=== PATIENT | female | born 1955 | race Caucasian/White ===

== ENCOUNTER → 2020-03-23 13:32 | Outpatient (CLI) | payer OTHER, SELFPAY ==
[2020-03-23 16:31] LABS: Vitamin D,25 Hydroxy 22.1 ng/mL
== END ==
PROVIDERS: Visit Provider Student in an Organized Health Care Education/Training Program
DX: E55.9 Vitamin D deficiency, unspecified (principal)
CPT/HCPCS: 36415; 82306

== ENCOUNTER → 2020-06-25 08:13 | Outpatient (CLI) | payer OTHER, SELFPAY ==
[2020-06-15 09:05] VITALS: BMI 42.9
--- NOTE | 2020-06-25 08:17 | US_ITS ---
STUDY: ULTRASOUND BREAST - LEFT REASON FOR EXAM: Female, 64 years old. Ultrasound guided left breast biopsy. TECHNIQUE: Axial and longitudinal images of the LEFT breast were performed with a high resolution ultrasound transducer. # OF IMAGES: 33 COMPARISON: None. FINDINGS: LEFT Breast: Under direct sonographic guidance, a decision performed 2 core biopsies of the 7 mm x 5 mm x 5 mm hypoechoic nodule at the 10 o''clock position of the breast at 5 cm from nipple. US/US Breast Biopsy 1st Lesion IMPRESSION: Ultrasound guided biopsy of the hypoechoic solid nodule at the 10 o''clock position of the breast at 5 cm from the nipple. ASSESSMENT CATEGORY: BIRADS Category 2: Benign. A letter regarding these results will be sent to the patient by the facility within 30 days. Electronically Signed: Elías Casanova MD at 10:55 EST , Service support ,
--- NOTE | 2020-06-25 08:45 | BRBX_PTH ---
PATIENT: LENNY DANG LOC: [facility] U#:[id number] AGE/SX: 69/F ROOM: RE06/25/[address]: Dr. Odette Chun MD : 1955 BED: DIS: SPEC #: [id number] RECD: 06/25/20 10:41 STATUS: CRISTEL REReddy #: [id number] NELSON: 06/25/20 08:[address]: Odette Chun DEPT: SURGICAL PATHOLOGY RECD BY: Thomas Stone ENTERED: 06/25/20 11:24 SP TYPE: BREAST BX OTHR DR: Dr. Cristi Hilton MD Tissues: Left breast, NOS Procedures: Surgery Specimen Level IV HEADER OPERATION: Left breast biopsy PRE-OP DIAGNOSIS: Left breast mass TISSUE SUBMITTED: Left breast mass 10 o'clock solid/cystic ISCHEMIC TIME: 1 minute FIXATION TIME: 58.5 hours MICROSCOPIC DIAGNOSIS Left breast mass, core biopsy: Mild duct ectasia and focal features of fibrocystic change. No evidence of malignancy. AM:lopez 06/28/2020 MICROSCOPIC DESCRIPTION Slides are reviewed. GROSS DESCRIPTION Received in fixative is one container labeled with the patient's name and designated left breast. The specimen consists of two elongated fragments of yellow soft tissue that in aggregate measure 1.5 x 0.2 x 0.1 cm. The specimen is totally submitted in one cassette. / AM:lopez 06/25/20 TC:5 CPT: 08329
--- NOTE | 2020-06-25 09:28 | PCM.OPRPT ---
Report of Operation Date of Procedure: 06/25/20 Pre-Operative Diagnosis: Left breast mass 10:00 5 cm from the nipple Post-Operative Diagnosis: Same Surgery/Procedure Performed:: Left breast ultrasound-guided core biopsy Type of Anesthesia:: Local Estimated Blood Loss (mL): Minimal Description of Procedure: Procedure: ultrasound-guided core biopsy Indications: 64 year-old female with hypoechoic nodule at 10:00 in the left breast 5 centimeters from the nipple. Risk benefits were discussed the patient and she elected to proceed with ultrasound guided core biopsy with clip placement Description of procedure: Patient was brought into the ultrasound room in the left breast was marked. A timeout was completed verifying correct patient, procedure, site, specially, prior to beginning procedure. The left breast was prepped and draped in usual sterile fashion and using local anesthesia was obtained with 1% lidocaine with epi. The lesion was located with the ultrasound. Small incision was made with 11 blade to introduced the mammotome through the skin. Under ultrasound guidance multiple core samples were obtained using then 13-gauge mammotome and sent in formalin for pathology. The mammotome mammostar clip was then deployed into the biopsy cavity under ultrasound guidance and a picture was taken. Upon completion procedure hemostasis was obtained and a Steri-Strip and OpSite were placed. Patient was then taken to the mammography suite for clip verification. The clip was verified. The patient tolerated the procedure well and was discharged from the breast imaging department good condition. complications: none - Complications None
== END ==
PROVIDERS: PCP Family Medicine; Referring Provider Surgery; Visit Provider Surgery
DX: N60.42 Mammary duct ectasia of left breast (principal); N60.12 Diffuse cystic mastopathy of left breast
CPT/HCPCS: 19083; 88305

== ENCOUNTER → 2021-01-25 10:48 | Outpatient (CLI) | payer OTHER, SELFPAY ==
[2020-06-15 09:05] VITALS: BMI 42.9
--- NOTE | 2021-01-25 10:51 | US_ITS ---
STUDY: ULTRASOUND BREAST - LEFT REASON FOR EXAM: Female, 65 years old. Follow-up biopsy TECHNIQUE: Axial and longitudinal images of the LEFT breast were performed with a high resolution ultrasound transducer. # OF IMAGES: 22 COMPARISON: 06/25/2020 FINDINGS: LEFT Breast: Heterogeneous background echotexture. There is no change in a 5 mm oval parallel circumscribed hypoechoic mass which has been biopsied.: US/Breast Limited Unilateral IMPRESSION: No change in 5 mm oval hypoechoic mass which has been biopsied. ASSESSMENT CATEGORY: BIRADS Category 2: Benign. A letter regarding these results will be sent to the patient by the facility within 30 days. Electronically Signed: Singh Gutierrez MD at 14:20 EDT Tel , Service support ,
== END ==
PROVIDERS: PCP Family Medicine; Referring Provider Surgery; Visit Provider Surgery
DX: R92.8 Other abnormal and inconclusive findings on diagnostic imaging of breast (principal)
CPT/HCPCS: 76642

== ENCOUNTER 2021-09-05 08:42 | Outpatient (CLI) | payer MEDICARE, SELFPAY ==
--- NOTE | 2021-09-05 08:44 | BI_ITS ---
MAMMOGRAPHY - BILATERAL SCREENING REASON FOR EXAM: Female, 66 years old. Routine annual screening examination. PERTINENT HISTORY: Grandmother with breast cancer. History of prior left ultrasound-guided breast biopsy. TECHNIQUE: Digital bilateral breast mariela (3D mammographic acquisition) in the CC and MLO projections. 2-D mediolateral oblique (MLO) and craniocaudad (CC) views of both breasts were obtained. CAD: Full Field Digital Mammography with Computer Added Detection was performed. COMPARISON: Comparison is made with prior abdomen examination dated 05/18/2020. FINDINGS: Breast Composition: There are scattered areas of fibroglandular density. There are no dominant masses or suspicious calcifications. A tissue clip marker is seen within a tiny nodule in the central medial anterior aspect of the left breast. The nodular density has decreased in size as compared to prior study. No other significant abnormalities are identified. There has been no significant change since the prior study. BI/SCRN MAMM (CAD)W/MARIELA BILAT IMPRESSION: Stable bilateral screening mammogram. Yearly follow-up mammogram recommended. (A) ASSESSMENT CATEGORY: BIRADS Category 2: Benign. A letter regarding these results will be sent to the patient by the facility within 30 days. Approximately 10% of breast cancers are not detected by mammography. A normal mammogram should not delay biopsy of a clinically suspicious abnormality. [id number] Electronically Signed: Elías Casanova MD at 10:04 EDT ,
== END 2021-09-05 23:59 | disposition home or self-care (01) ==
PROVIDERS: PCP Family Medicine; Referring Provider Student in an Organized Health Care Education/Training Program; Visit Provider Student in an Organized Health Care Education/Training Program
DX: Z12.31 Encounter for screening mammogram for malignant neoplasm of breast (principal); Z80.3 Family history of malignant neoplasm of breast
CPT/HCPCS: 77063; 77067

== ENCOUNTER → 2022-09-07 | Outpatient (CLI) | payer MEDICARE, SELFPAY ==
--- NOTE | 2022-09-07 09:18 | BI_ITS ---
MAMMOGRAPHY - BILATERAL SCREENING 3-D TOMOSYNTHESIS REASON FOR EXAM: Female, 67 years old. Routine screening PERTINENT HISTORY: Grandmother with breast cancer.. TECHNIQUE: 2-D mammograms and 3-D Tomosynthesis of the breast (s) were performed. CAD was performed. COMPARISON: 09/05/2021 FINDINGS: The breast composition is composed of scattered fibroglandular density. Scattered benign calcifications are seen. No dense spiculated masses or suspicious microcalcifications are identified. No architectural distortion is identified. There is no skin thickening or retraction. There has been no significant change since the prior study. BI/SCRN MAMM (CAD)W/MARIELA BILAT IMPRESSION: No mammographic signs of malignancy. Routine yearly mammograms recommended. ASSESSMENT CATEGORY: BIRADS Category 1: Negative. A letter regarding these results will be sent to the patient by the facility within 30 days. FOLLOW UP RECOMMENDATION: Yearly follow up mammogram recommended. (A) Approximately 10% of breast cancers are not detected by mammography. A normal mammogram should not delay biopsy of a clinically suspicious abnormality. Electronically Signed: Eulalio Hernandes MD at 11:56 EDT ,
--- NOTE | 2022-09-07 09:25 | BD_ITS ---
STUDY: DUAL ENERGY X-RAY ABSORPTIOMETRY / DXA REASON FOR EXAM: Female, 67 years old. 627.8Menopausal postmenopausal BONE DENSITY REASON FOR EXAM TECHNIQUE: Bone Mineral Density (BMD) measurements of lumbar spine and bilateral hips were obtained. COMPARISON: None. FINDINGS: Lumbar Spine (L1-L4): g/cm2 (1.229) / T-score (1.7) / Z-score (3.5) Findings are suggestive of normal bone density with a low fracture risk. Left Femur Total: g/cm2 (1.179) / T-score (1.9) / Z-score (3.2) Left Femoral Neck: g/cm2 (0.943) / T-score (0.8) / Z-score (2.4) Right Femur Total: g/cm2 (1.145) / T-score (1.7) / Z-score (3.0) Right Femoral Neck: g/cm2 (0.886) / T-score (0.3) / Z-score (1.9) BD/Dexa Bone Density Study IMPRESSION: The patient is considered normal as outlined below according to World [employer] Organization (WHO) criteria with a low fracture risk. Reference Information: The T-score is the number of standard deviations above or below the standard which is normal for young adults at their peak bone mineral density. The World Health Organization (WHO) interprets the T-scores as follows: Above -1 Normal bone density Between -1 and -2.5 Osteopenia Equal to / or below -2.5 Osteoporosis As a practical clinical guideline, osteopenia may be graded as follows: Mild -1 through -1.5 Moderate -1.6 through -2.0 Severe -2.1 through -2.4 The Z-score is the number of standard deviations above or below age-matched controls. A Z-score of less than -1.5 would be considered abnormal. References: 1. NIH Osteoporosis and Related Bone Diseases www osteo.org 2. International Society for Clinical Densitometry www iscd.org 3. National Osteoporosis Foundation www nof.org Electronically Signed: Elías Casanova MD at 15:27 EDT ,
== END | disposition home or self-care (01) ==
PROVIDERS: PCP Nurse Practitioner Family; Referring Provider Student in an Organized Health Care Education/Training Program; Visit Provider Student in an Organized Health Care Education/Training Program
DX: Z13.820 Encounter for screening for osteoporosis (principal); N95.9 Unspecified menopausal and perimenopausal disorder; Z12.31 Encounter for screening mammogram for malignant neoplasm of breast
CPT/HCPCS: 77063; 77067; 77080

== ENCOUNTER 2022-09-25 09:17 | Day surgery (SDC) | payer MEDICARE, SELFPAY ==
[2022-09-25 09:41] VITALS: BP 118/85; PULSE 70; RESP 16; TEMP 36.6; O2SAT 97; BMI 43.6
--- NOTE | 2022-09-25 09:49 | H&P.OPEN ---
HPI - General General Date of Admission: 09/25/22 HPI Narrative LENNY DANG, is a 67 F who presents for screening colonoscopy. Patient never had previous colonoscopy. Patient denies any changes since her last office visit denies any abdominal pain. office visit 08/25/22 HPI HPI: Six 7-year-old female presents for screening colonoscopy.? Patient's never had previous colonoscopy.? However patient states she had diverticulitis 10 to 15 years ago and again had an episode and got Augmentin for 10 days from PCP but did not have a CAT scan at that time.? Patient states that she had bloating with this and left lower quadrant pain and some looser bowel movements but symptoms did improve after a few days.? Patient denies any family history of colon cancer.? Patient states she has bowel movements daily.? Patient is on 81 mg of aspirin and fish oil no other anticoagulation.? Patient denies any chronic abdominal pain/nausea/vomiting/reflux. [facility] Medical History (Updated 09/18/22 @ 14:02 by Miladys Reaves) Abnormal mammogram of left breast Abnormal ultrasound of breast Chest pain Depression Fatigue Gastric reflux High cholesterol History of diverticulitis History of stress test Hives Hypertension Non-smoker Post-menopausal Shortness of breath on exertion Thyroid disease Wears glasses Home Medications amlodipine 5 mg-benazepril 20 mg capsule 1 cap PO QHS 06/15/20 [History Last Taken Unknown] aspirin 81 mg tablet,delayed release (Adult Low Dose Aspirin) 81 mg PO DAILY 06/15/20 [History Last Taken Unknown] carvedilol 12.5 mg tablet 3.125 mg PO BID 06/15/20 [History Last Taken 09/25/22] hydrochlorothiazide 25 mg tablet 12.5 mg PO DAILY 06/15/20 [History Last Taken Unknown] levothyroxine 137 mcg tablet 137 mcg PO DAILY 06/15/20 [History Last Taken 09/25/22] omega-3 fatty acids 1,000 mg capsule (Fish Oil Concentrate) 1,000 mg PO DAILY 06/15/20 [History Last Taken Unknown] rosuvastatin 10 mg tablet 5 mg PO DAILY 06/15/20 [History Last Taken Unknown] vitamin B complex (B Complex-Vitamin B12 tablet) 1 tab PO DAILY 06/15/20 [History Last Taken Unknown] vitamin E (dl, acetate) 180 mg (400 unit) capsule 180 mg PO DAILY 08/15/22 [History Last Taken Unknown] calcium carbonate 333 mg-magnesium oxide 133 mg-zinc gluc 5 mg tablet 1 tab PO DAILY 09/18/22 [History Last Taken Unknown] omeprazole 20 mg tablet,delayed release 20 mg PO DAILY 09/18/22 [History Last Taken Unknown] Allergy/AdvReac Type Severity Reaction Status Date / Time Penicillins Allergy Unknown unknown Verified 09/25/22 09:39 Family History (Updated 08/24/22 @ 13:35 by [place]) Sister Rheumatoid arthritis Leukemia Father , heart attack age 57 Heart disease Myocardial infarction Hypertension CVA (cerebral vascular accident) Mother Arthritis Grandmother Cancer Son Diabetes Sister Seizures Sister Thyroid disorder Surgical History (Updated 09/18/22 @ 14:02 by Miladys Reaves) Hx of cardiac catheterization Hx of hysterectomy Social History Smoking Status: Never smoker second hand exposure: No alcohol intake: never substance use type: does not use caffeine: Yes what type of physical activity do you participate in: none frequency: does not exercise Past Medical/Surgical History Planned Operation Planned Operative Procedure/s: COLONOSCOPY Previous Hospitalizations/Surgeries HX Hospitalizations: No Any Problems With Anesthesia: No You/Your Family Experience Fever (Hyperthermia) With Anes: No Cholinesterase deficiency: No Cardiovascular Hx Hypertension: Yes (CONTROLLED ON MED) Respiratory Hx Sleep Apnea: No Hx Respiratory Tract Infection/Cold (presently): No Do You Snore Loudly (louder than talking or can be heard): No Do You Often Feel Tired/ Fatigued/ Sleepy Dring Daytime?: No Has Anyone Observed You Stop Breathing During Sleep?: No Result (for STOP score): Negative Smoking Status: Never smoker Neurological Does patient have nerve stimulator: No Allergies Penicillins Allergy (Unknown, Verified 09/25/22 09:39) unknown Discharge Is Pt Admitted From a Halfway, or a Longterm: No After D/C, Where Do you Plan to Go: Return Home Physical Exam Const alert, oriented x3 and no apparent distress HEENT normocephalic and head/scalp atraumatic Resp normal respiratory effort Cardio regular rate GI soft to palpation and non-tender; Negative for non-distended Palpation: Negative for guarding Extremity no clubbing, cyanosis or edema Neuro CN's II-XII intact bilaterally Psych mental status grossly normal Assessment & Plan Assessment/Plan (1) Hx of diverticulitis of colon: Surgery Risks - Colonoscopy I discussed with the patient the risks of the procedure: Yes Risks Include but are not Limited To: Risks include but are not limited to: Bleeding, perforation requiring further surgery, inability to complete colonoscopy requiring barium enema.
[2022-09-25] MEDS: Lactated Ringers 1,000 ML 15 ML IV (09:53)
[2022-09-25 10:30] VITALS: BP 118/85; BP 90/56; PULSE 77; RESP 16; TEMP 36.6; O2SAT 94
--- NOTE | 2022-09-25 10:33 | OP.CCLET_ITS ---
09/25/2022 Adis Shafer Re : Colonoscopy procedure for Calli Haines Dear Karan This procedure was performed on Sunday, September 25, 2022. My impressions and recommendations are as follows: Impressions : - Hemorrhoids found on perianal exam. - Non-bleeding external and internal hemorrhoids. - Diverticulosis in the sigmoid colon. - The examination was otherwise normal. - No specimens collected. Recommendations : - Discharge patient to home. - High fiber diet. - Continue present medications. - Repeat colonoscopy in 10 years for screening purposes. My findings are described in the full procedure note, which is enclosed. If I can be of further assistance, please feel free to contact me at Doctor phone number(s): , Work: . Sincerely, MD Odette Joe MD 09/25/2022 10:32:44 AM This report has been signed electronically.
--- NOTE | 2022-09-25 10:33 | OP.COLON_ITS ---
Patient Name: Calli Haines Procedure Date: 09/25/2022 10:01 AM Date of : 1955 Age: 67 Procedure: Colonoscopy Indications: Screening for colorectal malignant neoplasm Providers: Odette Chun MD Referring MD: Odette Chun MD Medicines: Monitored Anesthesia Care Patient Profile: This is a 67 year old female. Last Colonoscopy: none. The patient's first colonoscopy is today. Complications: No immediate complications. Procedure: Pre-Anesthesia Assessment: - Prior to the procedure, a History and Physical was performed, and patient medications and allergies were reviewed. The patient's tolerance of previous anesthesia was also reviewed. The risks and benefits of the procedure and the sedation options and risks were discussed with the patient. All questions were answered, and informed consent was obtained. Prior Anticoagulants: The patient has taken aspirin, last dose was 5 days prior to procedure. ASA Grade Assessment: Per anesthesia. After reviewing the risks and benefits, the patient was deemed in satisfactory condition to undergo the procedure. After I obtained informed consent, the scope was passed under direct vision. Throughout the procedure, the patient's blood pressure, pulse, and oxygen saturations were monitored continuously. The pediatric colonoscope was introduced through the anus and advanced to the cecum, identified by the appendiceal orifice, ileocecal valve and palpation. The colonoscopy was performed without difficulty. The patient tolerated the procedure well. The quality of the bowel preparation was good. Scope In: 10:12:15 AM Scope Withdrawal Time 0 hours 8 minutes 43 seconds Scope Out: 10:26:48 AM Total Procedure Duration Time 0 hours 14 minutes 33 seconds Findings: Hemorrhoids were found on perianal exam. Non-bleeding external and internal hemorrhoids were found. The hemorrhoids were small and Grade I (internal hemorrhoids that do not prolapse). A few small-mouthed diverticula were found in the sigmoid colon. The exam was otherwise without abnormality. Impression: - Hemorrhoids found on perianal exam. - Non-bleeding external and internal hemorrhoids. - Diverticulosis in the sigmoid colon. - The examination was otherwise normal. - No specimens collected. Recommendation: - Discharge patient to home. - High fiber diet. - Continue present medications. - Repeat colonoscopy in 10 years for screening purposes. Procedure Code(s): --- Professional --- 75835, PT, Colonoscopy, flexible; diagnostic, including collection of specimen(s) by brushing or washing, when performed (separate procedure) Diagnosis Code(s): --- Professional --- Z12.11, Encounter for screening for malignant neoplasm of colon K64.0, First degree hemorrhoids K57.30, Diverticulosis of large intestine without perforation or abscess without bleeding CPT copyright 2017 [employer]. All rights reserved. The codes documented in this report are preliminary and upon auditing coder review may be revised to meet current compliance requirements. MD Odette Joe MD 09/25/2022 10:32:44 AM This report has been signed electronically. Number of Addenda: 0 Note Initiated On: 09/25/2022 10:01 AM
[2022-09-25 10:35] VITALS: BP 118/85; BP 89/68; PULSE 72; RESP 16; O2SAT 94
[2022-09-25 10:40] VITALS: BP 118/85; BP 92/72; PULSE 73; RESP 16; O2SAT 96
[2022-09-25 10:45] VITALS: BP 111/83; BP 118/85; PULSE 75; RESP 16; TEMP 36.5; O2SAT 96
[2022-09-25 11:04] VITALS: BP 118/85
== END 2022-09-25 11:11 | disposition home or self-care (01) ==
LOC: EN 09:26 → AC 09:28
PROVIDERS: PCP Nurse Practitioner Family; Referring Provider Surgery; Visit Provider Surgery
PROC: 0DJD8ZZ Inspection of Lower Intestinal Tract, Via Natural or Artificial Opening Endoscopic (ICD-10-PCS; CPT 45378; principal; 2022-09-25 10:25)
DX: Z12.11 Encounter for screening for malignant neoplasm of colon (principal); K64.0 First degree hemorrhoids; K57.30 Diverticulosis of large intestine without perforation or abscess without bleeding; E78.00 Pure hypercholesterolemia, unspecified; I10 Essential (primary) hypertension; K21.9 Gastro-esophageal reflux disease without esophagitis; E07.9 Disorder of thyroid, unspecified; Z79.82 Long term (current) use of aspirin; Z79.899 Other long term (current) drug therapy
CPT/HCPCS: 45378; J7120; J2405

== ENCOUNTER → 2023-09-10 | Outpatient (CLI) | payer MEDICARE, SELFPAY ==
--- NOTE | 2023-09-10 12:23 | BI_ITS ---
MAMMOGRAPHY - BILATERAL SCREENING REASON FOR EXAM: Female, 68 years old. Routine annual screening examination. PERTINENT HISTORY: Grandmother with breast cancer. Prior left ultrasound-guided breast biopsy. TECHNIQUE: Digital bilateral breast mariela (3D mammographic acquisition) in the CC and MLO projections. 2-D mediolateral oblique (MLO) and craniocaudad (CC) views of both breasts were obtained. CAD: Full Field Digital Mammography with Computer Added Detection was performed. COMPARISON: Comparison is made with prior study September 07, 2022 and September 05, 2021. FINDINGS: Breast Composition: There are scattered areas of fibroglandular density. There are no dominant masses or suspicious calcifications. Stable benign-appearing bilateral axillary lymph nodes. No other significant abnormalities are identified. There has been no significant change since the prior study. BI/SCRN MAMM (CAD)W/MARIELA BILAT IMPRESSION: Stable bilateral screening mammogram. Yearly follow-up mammogram recommended. (A) ASSESSMENT CATEGORY: BIRADS Category 2: Benign. A letter regarding these results will be sent to the patient by the facility within 30 days. Approximately 10% of breast cancers are not detected by mammography. A normal mammogram should not delay biopsy of a clinically suspicious abnormality. [id number] Electronically Signed: Elías Casanova MD at 13:20 EDT ,
== END | disposition home or self-care (01) ==
PROVIDERS: PCP Nurse Practitioner Family; Referring Provider Nurse Practitioner Family; Visit Provider Nurse Practitioner Family
DX: Z12.31 Encounter for screening mammogram for malignant neoplasm of breast (principal)
CPT/HCPCS: 77063; 77067

== ENCOUNTER → 2025-01-19 | Outpatient (CLI) | payer MEDICARE, SELFPAY ==
--- NOTE | 2025-01-19 08:20 | BI_ITS ---
EXAM: SCRN MAMM (CAD)W/MARIELA BILAT DATE: 01/19/2025 CLINICAL HISTORY: F, Age 69 y/o , SCREENING TECHNIQUE: SCRN MAMM (CAD)W/MARIELA BILAT COMPARISON: Prior exam(s) dated 09/10/2023, 09/07/2022, and 09/05/2021. FINDINGS: TISSUE DENSITY: There are scattered areas of fibroglandular density. Bilateral Breast Mammographic Findings: A cluster of amorphous and round microcalcifications are seen in the medial aspect of the left breast covering an area measuring approximately 7 mm. These are not as well appreciated on the MLO view. They appear to be located in the slightly superior aspect of the breast on the mariela images. Further workup is indicated. A radiopaque clip is seen in the medial aspect of the left breast. The post biopsy site is stable. The biopsy was benign. Benign-appearing round macrocalcifications and round microcalcifications are seen in both breast. Benign vascular calcifications are seen in both breast. No suspicious masses, suspicious clustered microcalcifications, architectural distortion or secondary sign of malignancy is identified in the right breast. BI/SCRN MAMM (CAD)W/MARIELA BILAT IMPRESSION: The calcifications in the medial aspect of the left breast require additional w orkup. Patient should return for a LM view of the left breast as well as spot compression magnification CC and spot-compression m agnification LM view of the left breast microcalcifications. OVERALL FINAL ASSESSMENT BI-RADS 0: INCOMPLETE - NEED ADDITIONAL IMAGING EVALUATION. RECOMMENDATION: Additional Views obtained/call backs A letter with findings and recommendations will be mailed to the patient. Reading Location: [id number]
== END | disposition home or self-care (01) ==
LOC: OPBI 08:18
PROVIDERS: PCP Student in an Organized Health Care Education/Training Program; Referring Provider Student in an Organized Health Care Education/Training Program; Visit Provider Student in an Organized Health Care Education/Training Program
DX: Z12.31 Encounter for screening mammogram for malignant neoplasm of breast (principal)
CPT/HCPCS: 77063; 77067

== ENCOUNTER → 2025-01-23 | Outpatient (CLI) | payer MEDICARE, SELFPAY ==
--- NOTE | 2025-01-23 08:55 | BI_ITS ---
EXAM: DIAG MAMM W/CAD, UNILAT 01/23/2025 CLINICAL HISTORY: F, Age 69 y/o , ABD MAMM L BREAST TECHNIQUE: Procedure Code: [id number] Modality: MG Procedure: DIAG MAMM W/CAD, UNILAT. COMPARISON: Prior exam(s) dated 01/19/2025, 09/10/2023, 09/07/2022, 09/05/2021. FINDINGS: TISSUE DENSITY: There are scattered areas of fibroglandular density. Unilateral Left Breast Mammographic Findings: Follow-up examination performed for the left breast calcifications seen on examination of 01/19/2025. On the present examination, there is a group of coarse calcifications in the upper inner left breast at middle depth. This group appears similar to the scattered calcifications seen in the left breast. BI/DIAG MAMM W/CAD, UNILAT IMPRESSION: Calcifications in the upper inner left breast are probably benign. OVERALL FINAL ASSESSMENT BI-RADS 3: PROBABLY BENIGN. RECOMMENDATION: 6 Month Follow-up A letter with findings and recommendations will be mailed to the patient. Reading Location: [id number]
== END | disposition home or self-care (01) ==
LOC: OPBI 08:51
PROVIDERS: PCP Student in an Organized Health Care Education/Training Program; Referring Provider Student in an Organized Health Care Education/Training Program; Visit Provider Student in an Organized Health Care Education/Training Program
DX: R92.8 Other abnormal and inconclusive findings on diagnostic imaging of breast (principal)
CPT/HCPCS: 77065

== ENCOUNTER → 2025-04-29 | Outpatient (CLI) | payer MEDICARE, SELFPAY ==
--- NOTE | 2025-04-29 13:00 | NEURO ---
NCS and/or EMG Patient Report Ordering Doctor: Sachin Haines DATE OF SERVICE: 04/29/25 Calli presents with complaints of numbness and tingling in the left hand. Electrodiagnostic findings: Left median motor nerve demonstrates prolonged distal latency with normal amplitude and borderline reduced conduction velocity. Left ulnar motor response within normal limits, including conduction across the elbow. Prolonged left median sensory latency at the wrist. Normal left median and left ulnar F?wave. Needle EMG testing was performed the left upper limb. All muscles tested showed no evidence of denervation with normal motor unit action potentials. Electrodiagnostic impression: This is an abnormal study. 1 electrodiagnostic findings suggestive of left-sided median mononeuropathy. This consistent with a moderate left carpal tunnel syndrome. Multi Select Codes Neurology Neurology Interp Codes: 44847-80 Musc test done w/n test comp (interp) and 28058-50 Nrv cndj tst 5-6 studies (interp)
== END | disposition home or self-care (01) ==
LOC: PSN 10:21
PROVIDERS: PCP Student in an Organized Health Care Education/Training Program; Referring Provider Orthopaedic Surgery; Visit Provider Orthopaedic Surgery
DX: R20.2 Paresthesia of skin (principal)
CPT/HCPCS: 95886; 95909